=== PATIENT | female | born 1955 | race Caucasian/White ===

== ENCOUNTER 2017-03-06 09:23 | Outpatient (CLI) | payer MEDICAID ==
[2017-03-06 20:15] LABS: ALBUMIN/GLOBULIN RATIO 1.6 (1.0-2.2); BILIRUBIN,TOTAL 1.1 mg/dL (0.2-1.0); BUN - BLOOD UREA NITROGEN 13 mg/dL (6-20); CALCIUM 9.5 mg/dL (8.5-10.3); CARBON DIOXIDE - CO2 27 mmol/L (21-32); CHLORIDE 103 mmol/L (101-111); CHOL/HDL RATIO 5.3 (<4.4); CHOLESTEROL 243 mg/dL; CREATININE 0.8 mg/dL (0.4-1.0); GFR - MDRD 73 (>89); GLUCOSE 83 mg/dL (70-100); HDL CHOLESTEROL 46 mg/dL; LDL/HDL RATIO 3.8 (<4.4); POTASSIUM 3.7 mmol/L (3.5-5.0); SODIUM 139 mmol/L (135-145); TOTAL PROTEIN 7.3 g/dL (6.7-8.2); TRIGLYCERIDES 109 mg/dL; VLDL CHOLESTEROL 22 mg/dL
[2017-03-06 20:42] LABS: HEMOGLOBIN A1C 0.61 g/dL
== END 2017-03-06 09:24 | disposition home or self-care (01) ==
LOC: LAB.F 09:23
PROVIDERS: ATTEND Nurse Practitioner Family
DX: E11.9 Type 2 diabetes mellitus without complications (principal); E78.5 Hyperlipidemia, unspecified; E04.2 Nontoxic multinodular goiter
CPT/HCPCS: 36415; 80053; 80061; 83036; 84443

== ENCOUNTER 2017-03-16 11:26 | Outpatient (CLI) | payer MEDICAID ==
--- NOTE | 2017-03-17 17:50 | Mammography Report ---
DIGITAL SCREENING MAMMOGRAM: 03/16/2017 CLINICAL INDICATION: A 61-year-old for screening. COMPARISON: 10/2014, 07/2013, 06/2011, 11/2008, 06/2007. TECHNIQUE: Routine CC and MLO projections were obtained of the breasts. The breasts again demonstrate heterogeneously dense fibroglandular parenchyma bilaterally. Coarse an d punctate, typically benign calcifications are present. No suspicious masses, clustered microcalcif ications, or regions of architectural distortion are identified. IMPRESSION: BENIGN FINDINGS. RECOMMENDATION: ROUTINE ANNUAL SCREENING UNLESS OTHERWISE CLINICALLY INDICATED. BIRADS CATEGORY: 2, BENIGN FINDINGS. STANDARD QUALIFYING STATEMENTS 1. This examination was reviewed with the aid of Computed-Aided Detection (CAD). 2. A negative or benign imaging report should not delay biopsy if clinically suspicious findings are present. Consider surgical consultation if warranted. More than 5% of cancers are not identified b y imaging. 3. Dense breasts may obscure an underlying neoplasm. JOB #: [id number] EXT JOB #:[id number]
== END 2017-03-16 11:27 | disposition home or self-care (01) ==
LOC: DI.S 11:26
PROVIDERS: ATTEND Nurse Practitioner Family
DX: Z12.31 Encounter for screening mammogram for malignant neoplasm of breast (principal)
CPT/HCPCS: 77067

== ENCOUNTER 2017-05-28 13:54 | Outpatient (CLI) | payer MEDICAID | END 2017-05-28 13:55 | disposition home or self-care (01) | LOC: LAB.F 13:54 | PROVIDERS: ATTEND Internal Medicine Endocrinology, Diabetes & Metabolism | DX: E04.1 Nontoxic single thyroid nodule (principal) | CPT/HCPCS: 36415; 82306; 82310; 83970 ==

== ENCOUNTER 2018-03-29 13:15 | Outpatient (CLI) | payer MEDICAID, OTHER ==
[2018-03-29 19:26] LABS: ALBUMIN 4.9 g/dL (3.2-5.5); ALKALINE PHOSPHATASE 51 IU/L (42-121); ALT ALANINE AMINOTRANSFERASE 15 IU/L (10-60); AST ASPARTATE AMINOTRANSFERASE 17 IU/L (10-42); BILIRUBIN,TOTAL 0.7 mg/dL (0.2-1.0); BUN - BLOOD UREA NITROGEN 11 mg/dL (6-20); CALCIUM 9.6 mg/dL (8.5-10.3); CARBON DIOXIDE - CO2 26 mmol/L (21-32); CHLORIDE 106 mmol/L (101-111); CHOL/HDL RATIO 4.1 (<4.4); CHOLESTEROL 207 mg/dL; CREATININE 0.7 mg/dL (0.4-1.0); GFR - MDRD 85 (>89); GLUCOSE 128 mg/dL (70-100); HDL CHOLESTEROL 50 mg/dL; LDL CHOLESTEROL,CALCULATED 133 mg/dL; LDL/HDL RATIO 2.7 (<4.4); SODIUM 139 mmol/L (135-145); TOTAL PROTEIN 7.3 g/dL (6.7-8.2); VLDL CHOLESTEROL 24 mg/dL
[2018-03-29 20:01] LABS: HB2 TOTAL 14.7 g/dL; HEMOGLOBIN A1C 0.63 g/dL; HEMOGLOBIN A1C % 6.1 % (4.6-6.2)
== END 2018-03-29 13:16 | disposition home or self-care (01) ==
LOC: LAB.S 13:15
PROVIDERS: ATTEND Nurse Practitioner Family
DX: E11.9 Type 2 diabetes mellitus without complications (principal); E78.5 Hyperlipidemia, unspecified; E04.2 Nontoxic multinodular goiter
CPT/HCPCS: 36415; 80053; 80061; 83036; 83721; 84443

== ENCOUNTER 2018-10-18 21:37 | Emergency (ER) | payer OTHER ==
[2018-10-18 21:49] VITALS: BP 168/71
[2018-10-18] MEDS ORDERED: METOCLOPRAMIDE 10 MG/2 ML VIAL IVP STA (22:01)
[2018-10-18] MEDS ORDERED: diphenhydrAMINE INJ 50 MG/ML VIAL IVP STA (22:01)
[2018-10-18] MEDS ORDERED: KETOROLAC 30 MG/ML VIAL IVP STA (22:01)
[2018-10-18] MEDS ORDERED: ACETAMINOPHEN 500 MG TABLET PO STA (22:02)
[2018-10-18] MEDS ORDERED: METOCLOPRAMIDE 10 MG/2 ML VIAL ONE (22:20)
[2018-10-18] MEDS ORDERED: KETOROLAC 15 MG/ML VIAL ONE (22:20)
[2018-10-18] MEDS ORDERED: diphenhydrAMINE INJ 50 MG/ML VIAL ONE (22:20)
[2018-10-18] MEDS ORDERED: HALOPERIDOL 5 MG/ML VIAL ONE (23:26)
[2018-10-18] MEDS ORDERED: DEXAMETHASONE 10 MG/ML VIAL ONE (23:27)
[2018-10-19 01:16] LABS: BASOPHILS % (AUTO) 0.6 %; EOSINOPHILS # (AUTO) 0.1 10^3/uL (0.0-0.7); EOSINOPHILS % (AUTO) 1.9 %; HGB - HEMOGLOBIN 14.3 g/dL (12.0-16.0); LYMPHOCYTES # (AUTO) 1.7 10^3/uL (1.5-3.5); LYMPHOCYTES % (AUTO) 42.2 %; MEAN CORPUSCULAR HEMOGLOBIN 31.9 pg (27.0-31.0); MEAN CORPUSCULAR HGB CONC 33.1 g/dL (32.0-36.0); MEAN CORPUSCULAR VOLUME 96.6 fL (81.0-99.0); MEAN PLATELET VOLUME 8.1 fL (7.9-10.8); MONOCYTES # (AUTO) 0.4 10^3/uL (0.0-1.0); MONOCYTES % (AUTO) 8.5 %; NEUTROPHILS # (AUTO) 1.9 10^3/uL (1.5-6.6); NEUTROPHILS % (AUTO) 46.8 %; PLT - PLATELET COUNT 173 10^3/uL (130-450); RED BLOOD COUNT 4.46 10^6/uL (4.20-5.40); RED CELL DISTRIBUTION WIDTH 13.1 % (12.0-15.0); WHITE BLOOD COUNT 4.1 x10^3/uL (4.8-10.8)
[2018-10-19 01:16] LABS: ALBUMIN 4.7 g/dL (3.2-5.5); ALBUMIN/GLOBULIN RATIO 1.4 (1.0-2.2); BILIRUBIN,TOTAL 0.5 mg/dL (0.2-1.0); CALCIUM 9.8 mg/dL (8.5-10.3); CREATININE 0.7 mg/dL (0.4-1.0); TOTAL PROTEIN 8.1 g/dL (6.7-8.2)
--- NOTE | 2018-10-19 03:32 | ED Physician Documentation ---
PD HPI HEADACHE - Stated complaint Stated Complaint: DEUTSCH/CLAMMY - Chief complaint Chief Complaint: General - History obtained from History obtained from: Patient - History of Present Illness Timing - onset: How many days ago (1 wk) Timing - onset during: Rest Timing - duration: Days (7) Timing - details: Gradual onset Pain level max: 6 Pain level now: 6 Severity Comments: moderate Worst headache ever?: Worst headache ever? (No) Location: Back Quality: Throbbing Associated symptoms: Other (Left facial droop since this am, clamminess) Improved by: Dark room Worsened by: Light Contributing factors: Other (History of migraines, Recent upper respiratory infection) Review of Systems Constitutional: reports: Reviewed and negative Eyes: reports: Reviewed and negative Ears: reports: Reviewed and negative Nose: reports: Reviewed and negative Throat: reports: Reviewed and negative Cardiac: reports: Reviewed and negative Respiratory: reports: Reviewed and negative GI: reports: Reviewed and negative : reports: Reviewed and negative Skin: reports: Reviewed and negative Musculoskeletal: reports: Reviewed and negative Neurologic: reports: Focal weakness (Left face), Headache Psychiatric: reports: Reviewed and negative Endocrine: reports: Reviewed and negative Immunocompromised: reports: Reviewed and negative PD PAST MEDICAL HISTORY - Past Medical History Cardiovascular: None, High cholesterol Respiratory: None Endocrine/Autoimmune: Other GI: None, Colon polyps : None HEENT: None Psych: None Musculoskeletal: None Derm: Other - Past Surgical History 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 - Present Medications Home Medications: Ambulatory Orders Medication Instructions Recorded Confirmed Sumatriptan Succinate [Imitrex] 100 mg PO ONCE PRN 11/03/13 12/14/14 Zolpidem [Ambien] 5 mg PO HS 12/14/14 12/19/14 - Allergies Allergies/Adverse Reactions: Allergies Allergy/AdvReac Type Severity Reaction Status Date / Time No Known Drug Allergies Allergy Verified 10/18/18 21:48 - Living Situation Living Situation: reports: Alone Living Arrangement: reports: At home - Family History Family history: reports: Other (Reviewed and not pertinent) PD ED PE NORMAL - Vitals Vital signs reviewed: Yes - General General: Alert and oriented X 3, No acute distress - HEENT HEENT: PERRL, Other (Slight left facial droop including forehead) - Neck Neck: Supple, no meningeal sign - Cardiac Cardiac: RRR, No murmur - Respiratory Respiratory: Clear bilaterally - Abdomen Abdomen: Normal bowel sounds, Soft, Non tender, Non distended - Derm Derm: Warm and dry - Extremities Extremities: No deformity - Neuro Neuro: Alert and oriented X 3, heater room helper 2-12 intact, No motor deficit, No sensory deficit, Normal speech, Other (Normal cerebellar testing, Normal gait) - Psych Psych: Normal mood, Normal affect Results - Vitals Vitals: Vital Signs - 24 hr 10/18/18 21:46 Temperature 36.5 C Heart Rate 92 Respiratory 17 Rate Blood Pressure 168/71 H O2 Saturation 98 Oxygen O2 Source Room air - EKG (time done) 0300 Rhythm: NSR [place]: Normal Intervals: Normal PA, QRS normal Ischemia: Normal ST segments. No: T wave inversion - Labs Labs: Laboratory Tests 10/18/18 10/18/18 10/18/18 22:05 22:35 22:37 WBC 4.1 L RBC 4.46 Hgb 14.3 Hct 43.1 MCV 96.6 MCH 31.9 H MCHC 33.1 RDW 13.1 Plt Count 173 MPV 8.1 Neut # (Auto) 1.9 Lymph # (Auto) 1.7 Stark # (Auto) 0.4 Eos # (Auto) 0.1 Baso # (Auto) 0.0 Absolute Nucleated RBC 0.00 Nucleated RBC % 0.0 Sodium 137 Potassium 3.6 Chloride 105 Carbon Dioxide 24 Anion Gap 8.0 BUN 16 Creatinine 0.7 Estimated GFR (MDRD) 85 L Glucose 141 H Calcium 9.8 Total Bilirubin 0.5 AST 18 ALT 18 Alkaline Phosphatase 63 Troponin I < 0.04 Total Protein 8.1 Albumin 4.7 Globulin 3.4 Albumin/Globulin Ratio 1.4 Lipase 42 - Rads (name of study) CT head Radiology: Final report received (WNL) Chest Xray Radiology: Final report received PD MEDICAL DECISION MAKING - ED course Complexity details: reviewed results, re-evaluated patient, considered differential, d/w patient, d/w family ED course: 62-year-old female who presents with headache, left facial droop, clammy extremities.Patient with slight Bernstein's palsy on exam with no other focal neuro deficits. Chest x-ray, head CT, labs, EKG, unremarkable.Patient treated for Bernstein's palsy with valacyclovir and prednisone.Migraine improved with migraine treatment.Patient encouraged to follow-up with PCP within 24 hours.Return precautions reviewed. Departure - Departure Disposition: Home, Self Care Clinical Impression: Bernstein's palsy Migraine Qualifiers: Migraine type: without aura Status migrainosus presence: without status migrainosus Intractability: not intractable Qualified Code(s): G43.009 - Migraine without aura, not intractable, without status migrainosus Discharge Date/Time: 10/19/18 02:21
--- NOTE | 2018-10-19 11:51 | XRAY Report ---
Reason: chest pain Procedure Date: 10/18/2018 Accession Number: [id number] / [id number] Procedure: XR - Chest 2 View X-Ray CPT Code: 93823 FULL RESULT: EXAM: CHEST RADIOGRAPHY EXAM DATE: 10/18/2018 10:33 PM. CLINICAL HISTORY: Chest pain. COMPARISON: None. TECHNIQUE: 2 views. FINDINGS: Lungs/Pleura: No alveolar consolidation or pleural effusion seen. No pneumothorax. Mediastinum: Heart and mediastinal contours are unremarkable. Other: None. IMPRESSION: 1. No acute abnormality seen in the chest. RADIA
--- NOTE | 2018-10-19 11:51 | CT Report ---
Reason: Sudden sever headache Procedure Date: 10/18/2018 Accession Number: [id number] / [id number] Procedure: CT - HEAD WO CPT Code: FULL RESULT: EXAM: CT HEAD EXAM DATE: 10/18/2018 10:42 PM. CLINICAL HISTORY: Sudden severe headache COMPARISON: None. TECHNIQUE: Multiaxial CT images were obtained from the foramen magnum to the vertex. Reformats: Sagittal and coronal. IV contrast: None. In accordance with CT protocol optimization, one or more of the following dose reduction techniques were utilized for this exam: automated exposure control, adjustment of mA and/or KV based on patient size, or use of iterative reconstructive technique. FINDINGS: Parenchyma: No intraparenchymal hemorrhage. No evidence of mass, midline shift, or CT findings of acute infarction. Hinds-white differentiation is distinct. Extraaxial Spaces: Normal for age. No subdural or epidural collections identified. Ventricles: Normal in size and position. Sinuses and Orbits: Imaged paranasal sinuses, orbits, and mastoids show no significant abnormality. Bones: No evidence of fracture or calvarial defect. Other: None. IMPRESSION: Normal head CT. RADIA
== END 2018-10-19 02:21 | disposition home or self-care (01) ==
LOC: ED 21:37
DX: G51.0 Bell's palsy (principal); G43.009 Migraine without aura, not intractable, without status migrainosus
CPT/HCPCS: 36415; 70450; 71046; 80053; 83690; 84484; 85025; 93005; 99282; 99283; J1200; J2765

== ENCOUNTER 2019-06-14 10:44 | Outpatient (CLI) | payer OTHER ==
--- NOTE | 2019-06-14 13:18 | Mammography Report ---
Reason: ROUTINE MAMMO Procedure Date: 06/14/2019 Accession Number: [id number] / [id number] Procedure: DARREN - Screening Mammo w/Samy CPT Code: FULL RESULT: EXAM: Screening Mammo w/Samy DATE: 06/14/2019 12:00 PM CLINICAL HISTORY: Routine screening TECHNIQUE: (B) - Bilateral CC and MLO views were obtained. COMPARISON: 03/16/2017, 11/15/2014, 08/11/2013, 07/07/2011 and 12/18/2008 PARENCHYMAL PATTERN: (D) - The breasts demonstrate heterogeneously dense fibroglandular parenchyma bilaterally. FINDINGS: No significant interval change. Innumerable scattered benign-appearing calcifications are similar to previous. There are no suspicious masses, calcifications, or areas of distortion. IMPRESSION: Benign findings. BI-RADS category 2. RECOMMENDATION: (ANNUAL) - Recommend routine annual screening mammography. BI-RADS CATEGORY: (2) - Benign Findings. STANDARD QUALIFYING STATEMENTS: 1. This examination was not reviewed with the aid of Computer-Aided Detection (CAD). 2. A negative or benign imaging report should not preclude biopsy if clinically suspicious findings are present. 3. Dense breasts may obscure an underlying neoplasm. 4. This examination was reviewed with the aid of 3D breast imaging (tomosynthesis).
== END 2019-06-14 10:45 | disposition home or self-care (01) ==
LOC: DI 10:44
PROVIDERS: ATTEND Registered Nurse
DX: Z12.31 Encounter for screening mammogram for malignant neoplasm of breast (principal)
CPT/HCPCS: 77063; 77067

== ENCOUNTER 2019-06-14 10:47 | Outpatient (CLI) | payer OTHER ==
--- NOTE | 2019-06-14 13:50 | DEXA Report ---
Reason: POSTMENOPAUSAL Procedure Date: 06/14/2019 Accession Number: [id number] / [id number] Procedure: DEX - Dexa Spine and/or Hip CPT Code: FULL RESULT: EXAM: Dexa Spine and/or Hip DATE: 06/14/2019 11:40 AM CLINICAL HISTORY: POSTMENOPAUSAL TECHNIQUE: Dual energy x-ray absorptiometry (DXA) was performed on a [employer] System. Regions measured are the AP Spine, femoral neck, and if needed forearm. COMPARISON: None. In accordance with the International Society for Clinical Densitometry (ISCD) guidelines, data from previous exams may be reanalyzed using current recommendations and techniques. This is done to allow a more accurate basis for comparison with the current study. FINDINGS: The data for the lumbar spine is as follows: BMD (g/cm/cm) T-SCORE Z-SCORE REGION L1 1.017 -0.9 0.6 L2 1.030 -1.4 0.1 L3 1.107 -0.8 0.8 L4 1.075 -1.0 0.5 TOTAL 1.056 -1.0 0.5 NOTE: All evaluable vertebrae are used for classification The data for the hip is as follows: BMD (g/cm/cm) T-SCORE Z-SCORE REGION Neck 0.772 -1.9 -0.5 TOTAL 0.894 -0.9 0.2 NOTE: The femoral neck or total proximal femur, whichever is lowest, is used for classification. IMPRESSION: THE WHO CLASSIFICATION BASED ON THE INTERNATIONAL REFERENCE STANDARD IS OSTEOPENIA, REFERENCE LEFT FEMORAL NECK.. THE FRACTURE RISK IS INCREASED. RECOMMENDATION: Patients with diagnosis of osteoporosis or osteopenia should have regular bone mineral density assessment. For those eligible for Medicare, routine testing is allowed once every 2 years. Testing frequency can be increased for patients who have rapidly progressing disease or for those who are receiving medical therapy to restore bone mass. COMMENT: World Health Organization (WHO) definitions for osteoporosis and osteopenia: NORMAL BMD: T-score at -1.0 or higher, fracture risk is low OSTEOPENIA BMD: T-score between -1.0 and -2.5, fracture risk is increased. OSTEOPOROSIS BMD: T-score at -2.5 or lower, fracture risk is high. National Osteoporosis Foundation recommends: 1. Obtain adequate dietary calcium (at least 1200 mg per day) and vitamin D (400-800 international units per day). 2. Participate, as appropriate, in regular weightbearing and muscle-strengthening exercise. 3. Avoid tobacco use and reduce alcohol and caffeine intake. 4. For more detailed information see the website at www.NOF.org.
== END 2019-06-14 10:48 | disposition home or self-care (01) ==
LOC: DI 10:47
PROVIDERS: ATTEND Registered Nurse
DX: M85.89 Other specified disorders of bone density and structure, multiple sites (principal); Z78.0 Asymptomatic menopausal state
CPT/HCPCS: 77080

== ENCOUNTER 2019-07-27 07:56 | Day surgery (SDC) | payer OTHER ==
[2019-07-27] MEDS ORDERED: MIDAZOLAM 2 MG/2 ML VIAL IVP ONE (07:57)
[2019-07-27] MEDS ORDERED: fentaNYL 250 MCG/5 ML VIAL IVP ONE (07:57)
[2019-07-27] MEDS ORDERED: LACTATED RINGERS 1,000 ML IV ONE (08:13)
[2019-07-27] MEDS ORDERED: ONDANSETRON 4 MG/2 ML VIAL ONE (08:41)
[2019-07-27 09:41] VITALS: BP 106/65
== END 2019-07-27 07:57 | disposition home or self-care (01) ==
LOC: SDS 07:56
PROVIDERS: ATTEND Surgery
PROC: 0DJD8ZZ Inspection of Lower Intestinal Tract, Via Natural or Artificial Opening Endoscopic (ICD-10-PCS; principal; 2019-07-27 09:15)
DX: Z12.11 Encounter for screening for malignant neoplasm of colon (principal); K57.30 Diverticulosis of large intestine without perforation or abscess without bleeding; K64.8 Other hemorrhoids; E11.9 Type 2 diabetes mellitus without complications; F40.240 Claustrophobia; E78.5 Hyperlipidemia, unspecified; E04.2 Nontoxic multinodular goiter; G43.909 Migraine, unspecified, not intractable, without status migrainosus
CPT/HCPCS: 45378; J3010; J7120

== ENCOUNTER 2020-04-18 10:27 | Outpatient (CLI) | payer MEDICARE ==
[2020-04-18 15:08] LABS: BASOPHILS % (AUTO) 0.6 %; EOSINOPHILS # (AUTO) 0.1 10^3/uL (0.0-0.7); EOSINOPHILS % (AUTO) 2.3 %; HGB - HEMOGLOBIN 13.8 g/dL (12.0-16.0); LYMPHOCYTES # (AUTO) 1.6 10^3/uL (1.5-3.5); LYMPHOCYTES % (AUTO) 45.1 %; MEAN CORPUSCULAR HEMOGLOBIN 32.7 pg (27.0-31.0); MEAN CORPUSCULAR HGB CONC 33.2 g/dL (32.0-36.0); MEAN CORPUSCULAR VOLUME 98.6 fL (81.0-99.0); MEAN PLATELET VOLUME 10.8 fL (7.9-10.8); MONOCYTES # (AUTO) 0.4 10^3/uL (0.0-1.0); MONOCYTES % (AUTO) 10.8 %; NEUTROPHILS # (AUTO) 1.4 10^3/uL (1.5-6.6); NEUTROPHILS % (AUTO) 41.2 %; PLT - PLATELET COUNT 147 10^3/uL (130-450); RED BLOOD COUNT 4.22 10^6/uL (4.20-5.40); RED CELL DISTRIBUTION WIDTH 12.7 % (12.0-15.0); WHITE BLOOD COUNT 3.4 x10^3/uL (4.8-10.8)
[2020-04-18 15:33] LABS: ALBUMIN 4.5 g/dL (3.2-5.5); ALBUMIN/GLOBULIN RATIO 1.6 (1.0-2.2); ALKALINE PHOSPHATASE 49 IU/L (42-121); ALT ALANINE AMINOTRANSFERASE 16 IU/L (10-60); AST ASPARTATE AMINOTRANSFERASE 19 IU/L (10-42); BUN - BLOOD UREA NITROGEN 16 mg/dL (6-20); CALCIUM 9.5 mg/dL (8.5-10.3); CARBON DIOXIDE - CO2 25 mmol/L (21-32); CHLORIDE 105 mmol/L (101-111); CHOL/HDL RATIO 4.7 (<4.4); CHOLESTEROL 239 mg/dL; CREATININE 0.7 mg/dL (0.4-1.0); GLUCOSE 102 mg/dL (70-100); HDL CHOLESTEROL 51 mg/dL; LDL CHOLESTEROL,CALCULATED 168 mg/dL; LDL/HDL RATIO 3.3 (<4.4); SODIUM 136 mmol/L (135-145); TOTAL PROTEIN 7.3 g/dL (6.7-8.2); VLDL CHOLESTEROL 20 mg/dL
== END 2020-04-18 10:28 | disposition home or self-care (01) ==
LOC: LAB.S 10:27
PROVIDERS: ATTEND Registered Nurse
DX: E78.5 Hyperlipidemia, unspecified (principal); E04.2 Nontoxic multinodular goiter; F32.9 Major depressive disorder, single episode, unspecified; G43.909 Migraine, unspecified, not intractable, without status migrainosus; G47.00 Insomnia, unspecified
CPT/HCPCS: 36415; 80053; 80061; 83721; 84443; 85025

== ENCOUNTER 2020-12-19 13:47 | Outpatient (CLI) | payer MEDICARE ==
--- NOTE | 2020-12-20 12:06 | Mammography Report ---
BILATERAL DIGITAL SCREENING MAMMOGRAM 3D/2D: 12/19/2020 CLINICAL: Family history of breast cancer. Comparison is made to exams dated: 06/14/2019 mammogram, 03/16/2017 mammogram, and 11/15/2014 mammogra m - [facility]. The tissue of both breasts is heterogeneously dense. This may lowe r the sensitivity of mammography. There are benign diffuse calcifications in both breasts. No significant masses, calcifications, or other findings are seen in either breast. There has been no significant interval change. IMPRESSION: BENIGN There is no mammographic evidence of malignancy. A 1 year screening mammogram is recommended. This exam was interpreted at Station ID: [id number]. NOTE: For mammograms, a report in lay terms will be sent to the patient. Approximately 15% of breast malignancies will not be visualized mammographically. In the management of a palpable breast mass, a negative mammogram must not discourage biopsy of a clinically suspicious lesion. Electronically Signed By: Sravani kelley/juliet:12/19/2020 16:53:27 ACR BI-RADS Category 2: Benign Finding(s) 3342F PARENCHYMAL PATTERN: (D) - The breast(s) demonstrate(s) heterogeneously dense fibroglandular parchavezy ma. BI-RADS CATEGORY: (2) - 2 RECOMMENDATION: (ANNUAL) - Recommend routine annual screening mammography. [id number] 1 year screening LATERALITY: (B)
== END 2020-12-19 13:48 | disposition home or self-care (01) ==
LOC: DI.S 13:47
DX: Z12.31 Encounter for screening mammogram for malignant neoplasm of breast (principal); Z80.3 Family history of malignant neoplasm of breast

== ENCOUNTER 2021-04-02 14:37 | Outpatient (CLI) | payer MEDICARE ==
[2021-04-02 15:35] LABS: BASOPHILS % (AUTO) 0.4 %; EOSINOPHILS # (AUTO) 0.1 10^3/uL (0.0-0.7); EOSINOPHILS % (AUTO) 1.7 %; HCT - HEMATOCRIT 43.3 % (37.0-47.0); HGB - HEMOGLOBIN 14.4 g/dL (12.0-16.0); LYMPHOCYTES % (AUTO) 37.7 %; MEAN CORPUSCULAR HEMOGLOBIN 32.1 pg (27.0-31.0); MEAN CORPUSCULAR HGB CONC 33.3 g/dL (32.0-36.0); MEAN CORPUSCULAR VOLUME 96.7 fL (81.0-99.0); MEAN PLATELET VOLUME 10.1 fL (7.9-10.8); MONOCYTES # (AUTO) 0.4 10^3/uL (0.0-1.0); MONOCYTES % (AUTO) 7.5 %; NEUTROPHILS # (AUTO) 2.7 10^3/uL (1.5-6.6); NEUTROPHILS % (AUTO) 52.5 %; PLT - PLATELET COUNT 152 10^3/uL (130-450); RED BLOOD COUNT 4.48 10^6/uL (4.20-5.40); WHITE BLOOD COUNT 5.2 x10^3/uL (4.8-10.8)
[2021-04-02 15:46] LABS: ALBUMIN 4.5 g/dL (3.2-5.5); ALBUMIN/GLOBULIN RATIO 1.6 (1.0-2.2); BILIRUBIN,TOTAL 0.8 mg/dL (0.2-1.0); CREATININE 0.8 mg/dL (0.4-1.0); POTASSIUM 4.1 mmol/L (3.5-5.0); TOTAL PROTEIN 7.3 g/dL (6.7-8.2)
[2021-04-03 10:10] LABS: HEPATITIS C ANTIBODY NON-REACTIVE (NON-REACTIVE)
== END 2021-04-02 14:38 | disposition home or self-care (01) ==
LOC: RT 14:37
PROVIDERS: ATTEND Orthopaedic Surgery
DX: Z01.818 Encounter for other preprocedural examination (principal)
CPT/HCPCS: 36415; 80053; 85025; 86803; 93005

== ENCOUNTER 2021-04-18 14:05 | Outpatient (CLI) | payer MEDICARE | END 2021-04-18 14:06 | disposition home or self-care (01) | LOC: COV 14:05 | PROVIDERS: ATTEND Orthopaedic Surgery | DX: Z01.812 Encounter for preprocedural laboratory examination (principal); Z20.822 Contact with and (suspected) exposure to COVID-19 ==

== ENCOUNTER 2022-08-26 08:44 | Outpatient (CLI) | payer MEDICARE, BC ==
[2022-08-26 14:45] LABS: BASOPHILS % (AUTO) 0.7 %; EOSINOPHILS # (AUTO) 0.1 10^3/uL (0.0-0.7); EOSINOPHILS % (AUTO) 2.7 %; HGB - HEMOGLOBIN 14.1 g/dL (12.0-16.0); LYMPHOCYTES % (AUTO) 45.9 %; MEAN CORPUSCULAR HEMOGLOBIN 31.1 pg (27.0-31.0); MEAN CORPUSCULAR VOLUME 97.1 fL (81.0-99.0); MONOCYTES # (AUTO) 0.4 10^3/uL (0.0-1.0); MONOCYTES % (AUTO) 8.9 %; NEUTROPHILS # (AUTO) 1.8 10^3/uL (1.5-6.6); NEUTROPHILS % (AUTO) 41.6 %; PLT - PLATELET COUNT 148 10^3/uL (130-450); RED BLOOD COUNT 4.53 10^6/uL (4.20-5.40); RED CELL DISTRIBUTION WIDTH 12.4 % (12.0-15.0); WHITE BLOOD COUNT 4.4 x10^3/uL (4.8-10.8)
[2022-08-26 15:23] LABS: ALBUMIN 4.1 g/dL (3.2-5.5); ALBUMIN/GLOBULIN RATIO 1.4 (1.0-2.2); ALKALINE PHOSPHATASE 55 IU/L (42-121); ALT ALANINE AMINOTRANSFERASE 16 IU/L (10-60); AST ASPARTATE AMINOTRANSFERASE 18 IU/L (10-42); BILIRUBIN,TOTAL 0.9 mg/dL (0.2-1.0); BUN - BLOOD UREA NITROGEN 15 mg/dL (6-20); CALCIUM 9.9 mg/dL (8.5-10.3); CARBON DIOXIDE - CO2 28 mmol/L (21-32); CHLORIDE 101 mmol/L (101-111); CHOL/HDL RATIO 5.5 (<4.4); CHOLESTEROL 246 mg/dL; CREATININE 0.9 mg/dL (0.4-1.0); GFR - MDRD 62 (>89); GLUCOSE 115 mg/dL (70-100); HDL CHOLESTEROL 45 mg/dL; LDL CHOLESTEROL,CALCULATED 173 mg/dL; LDL/HDL RATIO 3.8 (<4.4); POTASSIUM 3.9 mmol/L (3.5-5.0); SODIUM 136 mmol/L (135-145); TOTAL PROTEIN 7.1 g/dL (6.7-8.2); TRIGLYCERIDES 139 mg/dL; VLDL CHOLESTEROL 28 mg/dL
[2022-08-26 15:29] LABS: THYROID STIMULATING HORMONE 4.09 uIU/mL (0.34-5.60)
--- NOTE | 2022-08-27 10:06 | Mammography Report ---
BILATERAL DIGITAL SCREENING MAMMOGRAM 3D/2D WITH EXAGGERATED CC: 08/26/2022 CLINICAL: Routine screening. Family history of breast cancer. Comparison is made to exams dated: 12/19/2020 mammogram, 06/14/2019 mammogram, and 03/16/2017 mammogra m - [facility]. Both breasts are heterogeneously dense, which may obscure small masses (category c / 51-75% glandular tissue). There are benign diffuse calcifications in both breasts. No significant masses, calcifications, or other findings are seen in either breast. There has been no significant interval change. IMPRESSION: BENIGN There is no mammographic evidence of malignancy. A 1 year screening mammogram is recommended. Based on the Tyrer Cuzick model (a risk assessment model) the patients lifetime risk is 8.9% and her 10 year risk is 4.7%. According to the ACR, ACS, and NCCN guidelines, an annual breast MRI exam bon g with mammogram is recommended if the patients lifetime risk is 20% or greater. This exam was interpreted at Station ID: [id number]. NOTE: For mammograms, a report in lay terms will be sent to the patient. Approximately 15% of breast malignancies will not be visualized mammographically. In the management of a palpable breast mass, a negative mammogram must not discourage biopsy of a clinically suspicious lesion. Electronically Signed By: Zehra bell/juliet:08/26/2022 14:01:33 ACR BI-RADS Category 2: Benign Finding(s) 3342F PARENCHYMAL PATTERN: (D) - The breast(s) demonstrate(s) heterogeneously dense fibroglandular yair hall. BI-RADS CATEGORY: (2) - 2 RECOMMENDATION: (ANNUAL) - Recommend routine annual screening mammography. [id number] 1 year screening LATERALITY: (B)
== END 2022-08-26 08:45 | disposition home or self-care (01) ==
LOC: DI.S 08:44
DX: Z12.31 Encounter for screening mammogram for malignant neoplasm of breast (principal); Z80.3 Family history of malignant neoplasm of breast; Z79.899 Other long term (current) drug therapy; E78.5 Hyperlipidemia, unspecified; E04.2 Nontoxic multinodular goiter
CPT/HCPCS: 36415; 80053; 80061; 83721; 84443; 85025

== ENCOUNTER 2022-10-07 10:36 | Outpatient (CLI) | payer MEDICARE, BC ==
--- NOTE | 2022-10-08 09:34 | XRAY Report ---
PROCEDURE: Knee 2 View BILAT INDICATIONS: KNEE PAIN TECHNIQUE: 2 views of the both knee(s) were acquired. COMPARISON: None. FINDINGS: Bones: No fractures or dislocations. No suspicious bony lesions. Severe joint space narrowing in th e medial femoral compartment of the right knee and moderate joint space narrowing in the medial femor otibial compartment of the left knee. Soft tissues: Small joint effusions bilaterally. No suspicious soft tissue calcifications. IMPRESSION: 1. Severe right knee and moderate left knee osteoarthritis. 2. Small knee joint effusions bilaterally. Reviewed by: Enmanuel Carmona MD on 10/08/2022 9:32 AM PST Approved by: Enmanuel Carmona MD on 10/08/2022 9:32 AM PST Station ID: [id number]
== END 2022-10-07 10:37 | disposition home or self-care (01) ==
LOC: DI 10:36
PROVIDERS: ATTEND Registered Nurse
DX: M17.0 Bilateral primary osteoarthritis of knee (principal); M25.461 Effusion, right knee; M25.462 Effusion, left knee

== ENCOUNTER 2022-11-03 14:41 | Outpatient (CLI) | payer MEDICARE, BC ==
--- NOTE | 2022-11-03 13:23 | XRAY Report ---
PROCEDURE: Knee 2 View BILAT INDICATIONS: BILAT KNEE PAIN TECHNIQUE: 2 views of the both knee(s) were acquired. COMPARISON: X-ray knees bilateral, 10/07/2022. FINDINGS: Bones: No fractures or dislocations. No suspicious bony lesions. Ioyoxjbg-to-awqytj tricompartmenta l knee joint degeneration bilaterally, right greater than left, most pronounced in the medial femorot ibial joints, secondary to osteoarthritis. There is urivqdfa-lx-myhufe joint space narrowing with we ightbearing. Soft tissues: No joint effusion. No suspicious soft tissue calcifications. IMPRESSION: Iwmtxcyx-fj-iwllnt osteoarthritis. Reviewed by: Enmanuel Carmona MD on 11/03/2022 12:22 PM SABAS Approved by: Enmanuel Carmona MD on 11/03/2022 12:22 PM SABAS Station ID: [id number]
== END 2022-11-03 14:42 | disposition home or self-care (01) ==
LOC: DI.WOS 14:41
PROVIDERS: ATTEND Physician Assistant Surgical
DX: M17.0 Bilateral primary osteoarthritis of knee (principal)

== ENCOUNTER 2023-04-16 17:44 | Outpatient (CLI) | payer MEDICARE, BC ==
--- NOTE | 2023-04-17 22:34 | Ultrasound Report ---
PROCEDURE: Head or Neck Soft Tissue INDICATIONS: GOITER TECHNIQUE: Real-time scanning was performed of the thyroid gland, with image documentation. COMPARISON: None FINDINGS: Right: Thyroid lobe measures 5.8 x 2.0 x 2.3 cm, and is homogeneous in echotexture. Left: Thyroid lobe measures 4.5 x 1.2 x 1.2 cm, and is homogenous in echotexture. Isthmus: 2 mm thick. Nodule number: One Location: Right superior Size: 0.6 x 0.5 x 0.5 cm. Composition: Solid (2 points). Echogenicity: Hypoechoic (2 points). Shape: wider than tall. Margins: Smooth (0 points). Echogenic foci: Punctate echogenic foci (3 points). Total points: 7 ACR TI-RADS category: Highly suspicious (7 points or greater). Nodule number: Two Location: Right mid Size: 1.0 x 0.6 x 0.7 cm. Composition: Spongiform (0 points). Echogenicity: Hypoechoic (2 points). Shape: wider than tall. Margins: Smooth (0 points). Echogenic foci: Comet-tail artifacts (0 points). Total points: 2 ACR TI-RADS category: Not suspicious (2 points). Nodule number: Three Location: Right inferior Size: 1.8 x 1.3 x 2.0 cm. Composition: Solid (2 points). Echogenicity: Hypoechoic (2 points). Shape: wider than tall. Margins: Smooth (0 points). Echogenic foci: None (0 points). Total points: 4 ACR TI-RADS category: Moderately suspicious (4-6 points). Nodule number: Four Location: Right inferior Size: 1.8 x 1.5 x 2.5 cm. Composition: Cystic / almost completely cystic (0 points). Echogenicity: Anechoic (0 points). Shape: wider than tall. Margins: Lobulated / Irregular (2 points). Echogenic foci: None (0 points). Total points: 2 ACR TI-RADS category: Not suspicious (2 points). Nodule number: 5 Location: Superior left Size: 0.5 x 0.4 x 0.5 cm. Composition: Cystic / almost completely cystic (0 points). Echogenicity: Anechoic (0 points). Shape: wider than tall. Margins: Smooth (0 points). Echogenic foci: Comet-tail artifacts (0 points). Total points: 0 ACR TI-RADS category: Benign (0 points). Nodule number: 6 Location: Mid left Size: 1.4 x 0.8 x 0.8 cm. Composition: Spongiform (0 points). Echogenicity: Isoechoic (1 point). Shape: wider than tall. Margins: Lobulated / Irregular (2 points). Echogenic foci: None (0 points). Total points: 3 ACR TI-RADS category: Mildly suspicious (3 points). IMPRESSION: Multinodular thyroid gland is detailed above. Thyroid nodule 3 in the right inferior thy roid lobe meets consensus criteria for fine-needle aspiration if not already accomplished. Otherwise, imaging follow-up as detailed below for the remaining thyroid nodules. ACR TI-RADS definitions and recommendations: TI-RADS 1 (benign): 0 points. FNA not needed. TI-RADS 2 (not suspicious): 2 points. FNA not needed. TI-RADS 3 (mildly suspicious): 3 points. "FNA if 2.5 cm or larger, follow up if 1.5 cm or larger (at 1, 3, and 5 years). TI-RADS 4 (moderately suspicious): 4-6 points. "FNA if 1.5 cm or larger, follow up if 1 cm or larger (at 1, 2, 3, and 5 years). TI-RADS 5 (highly suspicious): 7 points or more. "FNA if 1 cm or larger, follow up if 0.5 cm or larger (every year for 5 years). Reviewed by: Yobani Hastings MD on 04/17/2023 10:32 PM PDT Approved by: Yobani Hastings MD on 04/17/2023 10:32 PM PDT Station ID: [id number]
== END 2023-04-16 17:45 | disposition home or self-care (01) ==
LOC: DI 17:44
PROVIDERS: ATTEND Registered Nurse
DX: R13.10 Dysphagia, unspecified (principal); E04.2 Nontoxic multinodular goiter; Z80.8 Family history of malignant neoplasm of other organs or systems

== ENCOUNTER 2023-05-01 09:41 | Outpatient (CLI) | payer MEDICARE, BC ==
[2023-05-01] MEDS ORDERED: LIDOCAINE-MPF 1% 5 ML VIAL ONE (10:03)
[2023-05-01] MEDS ORDERED: LIDOCAINE-MPF 1% 5 ML VIAL TD ONE (10:56)
--- NOTE | 2023-05-01 13:01 | Ultrasound Report ---
PROCEDURE: FNA Bx w/US Gdn 1st Les INDICATIONS: MULTINODULAR GOITER TECHNIQUE: The indications, alternatives, benefits, risks, and complications of the procedure were explained to the patient. Written informed consent was obtained and placed in the chart. The area of interest wa s examined sonographically and a site was chosen for ultrasound guided percutaneous sampling. The sk in was prepared and draped in the usual fashion, and anesthetized with 1% lidocaine infiltrated from the skin down to the lesion. Multiple passes were then performed, with contents emptied into an [facility] pathology specimen container. A bandage was applied to the area of access at completion of t he study. COMPARISON: Thyroid ultrasound, 04/16/2023. FINDINGS: Location(s) of lesion(s) sampled: Nodule 3, right inferior [place]: 25 gauge hypodermic needles. Number of passes: 6 Medications: 1% lidocaine for local anaesthesia. Complications: None. IMPRESSION: Successful ultrasound-guided right thyroid nodule fine needle aspiration biopsy, with cytology result s pending. Reviewed by: Enmanuel Carmona MD on 05/01/2023 1:00 PM PDT Approved by: Enmanuel Carmona MD on 05/01/2023 1:00 PM PDT Station ID: [id number]
== END 2023-05-01 09:42 | disposition home or self-care (01) ==
LOC: DI 09:41
PROVIDERS: ATTEND Registered Nurse
DX: E04.2 Nontoxic multinodular goiter (principal)
CPT/HCPCS: 10005

== ENCOUNTER 2023-09-02 10:46 | Outpatient (CLI) | payer MEDICARE, BC ==
--- NOTE | 2023-09-04 11:36 | Mammography Report ---
BILATERAL DIGITAL SCREENING MAMMOGRAM 3D/2D WITH EXAGGERATED CC: 09/02/2023 CLINICAL: Routine screening. Family history of breast cancer. Comparison is made to exams dated: 08/26/2022 mammogram, 12/19/2020 mammogram, and 06/14/2019 mammogram - [facility]. Both breasts are heterogeneously dense, which may obscure small masses (category c / 51-75% glandular tissue). There are benign diffuse calcifications in both breasts. No significant masses, calcifications, or other findings are seen in either breast. There has been no significant interval change. IMPRESSION: BENIGN There is no mammographic evidence of malignancy. A 1 year screening mammogram is recommended. Based on the Tyrer Cuzick model (a risk assessment model) the patients lifetime risk is 8.4% and her 10 year risk is 4.7%. According to the ACR, ACS, and NCCN guidelines, an annual breast MRI exam bon g with mammogram is recommended if the patients lifetime risk is 20% or greater. This exam was interpreted at Station ID: [id number]. NOTE: For mammograms, a report in lay terms will be sent to the patient. Approximately 15% of breast malignancies will not be visualized mammographically. In the management of a palpable breast mass, a negative mammogram must not discourage biopsy of a clinically suspicious lesion. Electronically Signed By: Han gama/juliet:09/03/2023 09:32:59 letter sent: No_Letter ACR BI-RADS Category 2: Benign Finding(s) 3342F PARENCHYMAL PATTERN: (D) - The breast(s) demonstrate(s) heterogeneously dense fibroglandular yair hall. BI-RADS CATEGORY: (2) - 2 Mammogram [id number] 1 year screening LATERALITY: (B)
== END 2023-09-02 10:47 | disposition home or self-care (01) ==
LOC: DI.S 10:46
PROVIDERS: ATTEND Registered Nurse
DX: Z12.31 Encounter for screening mammogram for malignant neoplasm of breast (principal); Z80.3 Family history of malignant neoplasm of breast; R92.333 Mammographic heterogeneous density, bilateral breasts; R92.1 Mammographic calcification found on diagnostic imaging of breast

== ENCOUNTER 2023-09-30 10:06 | Outpatient (CLI) | payer MEDICARE, BC ==
[2023-09-30 14:29] LABS: BASOPHILS % (AUTO) 0.7 %; EOSINOPHILS # (AUTO) 0.1 10^3/uL (0.0-0.7); HCT - HEMATOCRIT 43.7 % (37.0-47.0); HGB - HEMOGLOBIN 13.8 g/dL (12.0-16.0); LYMPHOCYTES % (AUTO) 49.5 %; MEAN CORPUSCULAR HEMOGLOBIN 31.1 pg (27.0-31.0); MEAN CORPUSCULAR HGB CONC 31.6 g/dL (32.0-36.0); MEAN CORPUSCULAR VOLUME 98.4 fL (81.0-99.0); MEAN PLATELET VOLUME 10.7 fL (7.9-10.8); MONOCYTES # (AUTO) 0.4 10^3/uL (0.0-1.0); MONOCYTES % (AUTO) 9.7 %; NEUTROPHILS # (AUTO) 1.5 10^3/uL (1.5-6.6); NEUTROPHILS % (AUTO) 37.1 %; PLT - PLATELET COUNT 166 10^3/uL (130-450); RED BLOOD COUNT 4.44 10^6/uL (4.20-5.40); RED CELL DISTRIBUTION WIDTH 12.2 % (12.0-15.0)
[2023-09-30 15:43] LABS: ALBUMIN 4.2 g/dL (3.2-5.5); ALBUMIN/GLOBULIN RATIO 1.7 (1.0-2.2); ALKALINE PHOSPHATASE 56 IU/L (42-121); ALT ALANINE AMINOTRANSFERASE 12 IU/L (10-60); AST ASPARTATE AMINOTRANSFERASE 15 IU/L (10-42); BILIRUBIN,TOTAL 0.7 mg/dL (0.2-1.0); BUN - BLOOD UREA NITROGEN 17 mg/dL (6-20); CARBON DIOXIDE - CO2 27 mmol/L (21-32); CHLORIDE 106 mmol/L (101-111); CHOL/HDL RATIO 5.4 (<4.4); CHOLESTEROL 249 mg/dL; CREATININE 0.8 mg/dL (0.6-1.3); GFR - MDRD 71 (>89); GLUCOSE 150 mg/dL (74-104); HDL CHOLESTEROL 46 mg/dL; LDL CHOLESTEROL,CALCULATED 171 mg/dL; LDL/HDL RATIO 3.7 (<4.4); POTASSIUM 4.5 mmol/L (3.5-4.5); SODIUM 138 mmol/L (135-145); TOTAL PROTEIN 6.7 g/dL (6.4-8.9); TRIGLYCERIDES 159 mg/dL (48-352); VLDL CHOLESTEROL 32 mg/dL
[2023-09-30 15:55] LABS: THYROID STIMULATING HORMONE 2.98 uIU/mL (0.34-5.60)
== END 2023-09-30 10:07 | disposition home or self-care (01) ==
LOC: LAB.S 10:06
PROVIDERS: ATTEND Registered Nurse
DX: E78.5 Hyperlipidemia, unspecified (principal); Z79.899 Other long term (current) drug therapy; E04.2 Nontoxic multinodular goiter
CPT/HCPCS: 36415; 80053; 80061; 83721; 84443; 85025

== ENCOUNTER 2024-03-07 14:25 | Outpatient (CLI) | payer MEDICARE, BC ==
--- NOTE | 2024-03-07 17:34 | XRAY Report ---
PROCEDURE: Knee 4+V BL INDICATIONS: DEGENERATIVE JOINT DISEASE (B) TECHNIQUE: 4 views of the knee(s) were acquired. COMPARISON: 11/03/2022 FINDINGS: Bones: No fractures. Moderate to severe bilateral medial compartment joint space loss, right worse t patel left and moderate marginal spurs. Minor bilateral tibiofemoral subluxation laterally, similar com pared to the prior exam. Mild bilateral patellar subluxation laterally. Soft tissues: Small bilateral knee joint effusion. No suspicious soft tissue calcifications or pamela s. IMPRESSION: Degenerative osteoarthritic changes bilaterally with minimal progression since the previous exam. There is mild, degenerative appearing patellofemoral and tibiofemoral subluxation, similar compared t o prior. Reviewed by: Sravani Estrada MD on 03/07/2024 5:33 PM PDT Approved by: Sravani Estrada MD on 03/07/2024 5:33 PM PDT Station ID: [id number]
== END 2024-03-07 14:26 | disposition home or self-care (01) ==
LOC: DI 14:25
PROVIDERS: ATTEND Physician Assistant Surgical
DX: M17.11 Unilateral primary osteoarthritis, right knee (principal); M17.12 Unilateral primary osteoarthritis, left knee; M17.0 Bilateral primary osteoarthritis of knee